=== PATIENT | female | born 1960 | race African-American/Black ===

== ENCOUNTER 2023-06-17 10:14 | Outpatient (CLI) | payer BC | END 2023-06-17 10:15 | disposition home or self-care (01) | LOC: CSHULT 10:14 | PROVIDERS: ATTEND Internal Medicine | DX: N18.31 Chronic kidney disease, stage 3a (principal); R05.9 Cough, unspecified; N28.9 Disorder of kidney and ureter, unspecified | CPT/HCPCS: 71046; 76770 ==

== ENCOUNTER 2023-07-02 09:32 | Outpatient (CLI) | payer BC | END 2023-07-02 09:33 | disposition home or self-care (01) | LOC: CSHCT 09:32 | PROVIDERS: ATTEND Internal Medicine | DX: N28.9 Disorder of kidney and ureter, unspecified (principal); N28.1 Cyst of kidney, acquired; Z90.49 Acquired absence of other specified parts of digestive tract | CPT/HCPCS: 74170; 82565 ==